=== PATIENT | male | born 1945 | race Caucasian/White ===

== ENCOUNTER → 2019-10-23 12:08 | Outpatient (CLI) | payer OTHER, SELFPAY ==
--- NOTE | 2019-10-23 | DI.CT.S_ITS ---
PROCEDURE: CT CERVICAL SPINE WO CON INDICATIONS: Spinal stenosis, cervical region TECHNIQUE: Noncontrast 3 mm thick sections acquired from the skull base to the T4 level. Sagittal and coronal reformats were then constructed. For radiation dose reduction, the following was used: automated exposure control, adjustment of mA and/or kV according to patient size. COMPARISON: [facility], MR, C-SPINE WITHOUT CONTRAST, 09/09/2015, 14:54. [facility], CR, XR CERVICAL SPINE 2 OR 3 VIEWS, 10/08/2019, 11:00. FINDINGS: Image quality: Excellent. Bones: No fractures or dislocations. Visualized superior ribs are intact. Anterior fusion is present from C5 through T1. Vertebral screws are identified within the C5-C6 and T1 vertebral bodies. Mild disc bulges are present at C3-4, C4-C5. Mild spinal stenosis is noted at C3-4 and C4-5. Mild/moderate bilateral foraminal narrowing is present at C2-3, severe bilateral C3 or, C4-C5, left greater than right, severe bilateral C5-6, mild to moderate right and mild left C6-7. Multilevel uncovertebral arthropathy is present. Minimal interval progression is noted. Soft tissues: Prevertebral soft tissues are normal in thickness. No paravertebral hematomas. No apical pneumothoraces. IMPRESSION: 1. Anterior fusion as above. 2. Prominent multilevel degenerative narrowing demonstrate mild erosive interval progression. 3. Spinal stenosis is present at C3-4 and C4-5 are relatively stable. Previous stenosis at C5-6 and C6-7 is less prominent when compared to prior exam. Dictated by: Светлана Joaquin M.D. on 10/23/2019 at 15:17 Approved by: Светлана Joaquin M.D. on 10/23/2019 at 15:26
== END ==
PROVIDERS: PCP Family Medicine; Visit Provider Orthopaedic Surgery Orthopaedic Surgery of the Spine
DX: M48.02 Spinal stenosis, cervical region (principal); Z98.1 Arthrodesis status
CPT/HCPCS: 72125